=== PATIENT | male | born 1940 | race Caucasian/White ===

== ENCOUNTER 2021-10-08 14:30 | Outpatient (CLI) | payer MEDICARE, OTHER, SELFPAY ==
--- NOTE | ~2021-10-08 | XR_ITS ---
EXAMINATION: XR ankle LT min 3V DATE: 10/08/2021 14:47 INDICATION: Left ankle pain. TECHNIQUE: 4 views of left ankle were obtained. COMPARISON: None. FINDINGS: Bone alignment is normal. No fracture. There is mild osteoarthritis of talonavicular joint. There is mild ankle joint osteoarthritis including osteochondral lesions of medial and lateral talar dome. There is heterotopic ossification distal to medial and lateral malleoli from old injuries. The re are enthesophytes at the posterior and plantar aspects of calcaneal tuberosity. Ankle soft tissue swelling is noted. IMPRESSION: 1. Polyarticular osteoarthritis. Reviewed, dictated and finalized at location A.
== END 2021-10-08 14:31 ==
PROVIDERS: PCP Family Medicine; Visit Provider Physician Assistant
DX: M19.072 Primary osteoarthritis, left ankle and foot (principal)
CPT/HCPCS: 73610

== ENCOUNTER 2021-11-19 08:13 | Outpatient (CLI) | payer MEDICARE, OTHER, SELFPAY ==
--- NOTE | ~2021-11-19 | US_ITS ---
EXAMINATION: US art doppler w press LE BI DATE: 11/19/2021 09:07 INDICATION: Peripheral vascular disease TECHNIQUE: Segmental pressures and plethysmographic and Doppler waveforms of the brachial and lower e xtremity arteries were obtained. COMPARISON: None. FINDINGS: Right and left brachial artery pressures of 175 mm Hg and 172 mm Hg, respectively, are concordant (no rmal difference <= 30 mmHg). The right and left high-thigh pressure unable to be obtained due to inab ility to occlude the vessels in the right lower limb above the level of the ankle. The right ankle-brachial index (ELANA) is 1.18 (normal >= 0.9-1). The right great toe-brachial index (T BI) is 0.84 (normal >= 0.6-0.8). Arterial waveforms are biphasic with brisk systolic upstrokes throug hout the arteries of the right lower limb. The left ELANA is at least 1.09 based upon only the pressure in the left dorsalis pedis artery with the left posterior tibial artery unable to be occluded. The left TBI is 0.89. Arterial waveforms are bip hasic with brisk systolic upstrokes throughout the arteries of the left lower limb. IMPRESSION: 1. Normal ELANA's and TBI's bilaterally. No significant occlusive disease. Reviewed, dictated and finalized at location B.
== END 2021-11-19 08:14 | disposition home or self-care (01) ==
LOC: ANHIMG 08:20
PROVIDERS: PCP Family Medicine; Visit Provider Orthopaedic Surgery
DX: I73.9 Peripheral vascular disease, unspecified (principal)
CPT/HCPCS: 93923

== ENCOUNTER 2021-11-30 13:03 | Outpatient (CLI) | payer MEDICARE, OTHER, SELFPAY ==
--- NOTE | ~2021-11-30 | CT_ITS ---
EXAMINATION: CTA abd aorta runoff DATE: 11/30/2021 13:45 INDICATION: Unspecified atherosclerosis of [place] arteries TECHNIQUE: Computed tomographic angiography (CTA) of the abdomen, pelvis, and both lower extremities was performed with 150 mL Omnipaque-350 intravenous contrast. The dose-length product (DLP) was 1659. 15 mGy-cm. Maximum intensity projection 3D-reconstructions of the arteries were created by the [employer] on a separate workstation. Automated exposure control and iterative reconstruction technique w ere employed. COMPARISON: 09/06/2014 FINDINGS: ABDOMINAL AORTA AND ITS BRANCHES: There is calcified atherosclerosis without aneurysm or dissection. There is mild atherosclerosis at t he origins of the celiac axis, superior mesenteric artery, and inferior mesenteric artery. There are single renal arteries. PELVIC VASCULATURE: Mild atherosclerosis of the common and external iliac arteries. Calcified atherosclerosis with areas severe stenosis in the internal iliac arteries. RIGHT LOWER EXTREMITY VASCULATURE: Venous contamination somewhat limits evaluation. There is calcified atherosclerosis without hemodynam ically significant stenosis of the superficial femoral artery. The popliteal artery and tibial perone al trunk appear normal. There is mild atherosclerosis without hemodynamically significant stenosis in the anterior and posterior tibial arteries and the peroneal artery. There is a three-vessel runoff a t the ankle. LEFT LOWER EXTREMITY VASCULATURE: Venous contamination somewhat limits evaluation. There is calcified atherosclerosis without hemodynam ically significant stenosis of the superficial femoral artery. There is severe stenosis of the distal popliteal artery. The distal anterior tibial artery appears to be occluded. There is calcified ather osclerosis with multiple segments of occlusion in the posterior tibial artery. There is a two-vessel runoff at the ankle. ADDITIONAL FINDINGS: Punctate calcifications in an otherwise normal spleen likely represent healed granulomatous disease. The liver is diffusely low in attenuation when compared with the spleen, consistent with hepatic stea tosis. The pancreas, gallbladder, and adrenal glands are normal. There is a 2 mm nonobstructing stone of the right kidney. The left kidney is unremarkable. There are changes of pelvic lymph node dissect ion. There is no free intraperitoneal gas or evidence of bowel obstruction. 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 IMPRESSION: 1. Atherosclerotic disease as detailed above. Reviewed, dictated and finalized at location A.
[2021-11-30 13:32] LABS: Estimated Glomerular Filt Rate 45
== END 2021-11-30 13:04 | disposition home or self-care (01) ==
PROVIDERS: PCP Family Medicine; Visit Provider Orthopaedic Surgery
DX: I70.202 Unspecified atherosclerosis of native arteries of extremities, left leg (principal)
CPT/HCPCS: 75635; Q9967

== ENCOUNTER 2022-04-02 08:05 | Outpatient (CLI) | payer MEDICARE, OTHER, SELFPAY ==
[2022-04-02 18:39] LABS: Basophils Absolute Auto 0.1 K/mm3 (0.0-0.1); Basophils Percent Auto 0.5 % (0.2-1.2); Eosinophils Absolute Auto 0.1 K/mm3 (0-0.3); Eosinophils Percent Auto 1.2 % (0-4.4); Hematocrit 45.7 % (42.0-52.0); Hemoglobin 14.6 g/dL (14.0-18.0); Immature Granulocyte Absolute 0.07 K/mm3 (0.00-0.031); Immature Granulocyte Percent A 0.7 % (0-0.5); Lymphocytes Absolute Auto 2.92 K/mm3 (0.9-3.2); Lymphocytes Percent Auto 29.6 % (18.3-44.2); Mean Corpuscular HGB Conc 31.9 g/dl (32-36); Mean Corpuscular Hemoglobin 30.2 pg (26-34); Mean Corpuscular Volume 94.4 fl (80-100); Mean Platelet Volume 10.5 fl (7.4-10.4); Monocytes Absolute Auto 1.1 K/mm3 (0.1-0.6); Monocytes Percent Auto 10.6 % (2.6-8.5); Neutrophils Absolute Auto 5.7 K/mm3 (1.3-6.7); Neutrophils Percent Auto 57.4 % (45.5-73.1); Platelet Count Result 243 k/mm3 (150-375); Red Blood Count 4.84 M/mm3 (4.6-6.20); Red Cell Distribution Width 13.1 % (11.5-14.5); White Blood Count 9.9 K/mm3 (4.5-10.0)
[2022-04-02 20:29] LABS: Alanine Aminotransferase 34 U/L (6-50); Alkaline Phosphatase 86 U/L (38-126); Anion Gap 10 mmol/L (8-16); Aspartate Amino Transferase 39 U/L (17-59); Bilirubin,Total 0.4 mg/dL (0.2-1.3); Blood Urea Nitrogen 20 mg/dL (9-20); Calcium 9.6 mg/dL (8.4-10.2); Carbon Dioxide 28 mmol/L (22-30); Chloride 102 mmol/L (98-107); Cholesterol 128 mg/dL (0-200); Estimated Glomerular Filt Rate 58; Glucose 135 mg/dL (65-110); HDL Direct 25 mg/dL; Potassium 4.3 mmol/L (3.4-5.0); Sodium 140 mmol/L (137-145); Triglycerides 178 mg/dL (<150)
[2022-04-02 20:40] LABS: LDL Cholesterol Direct 65 mg/dL
[2022-04-02 20:58] LABS: Prostate Specific Antigen < 0.1 ng/mL (< OR = 4.0)
[2022-04-02 21:23] LABS: Hemoglobin A1C 7.1 % (<5.7)
== END 2022-04-02 08:06 | disposition home or self-care (01) ==
LOC: ANHGOSHLAB 08:08
PROVIDERS: PCP Family Medicine; Visit Provider Physician Assistant
DX: E11.65 Type 2 diabetes mellitus with hyperglycemia (principal); E78.2 Mixed hyperlipidemia; G47.33 Obstructive sleep apnea (adult) (pediatric); I10 Essential (primary) hypertension; Z79.899 Other long term (current) drug therapy; Z99.89 Dependence on other enabling machines and devices; C61 Malignant neoplasm of prostate
CPT/HCPCS: 36415; 80053; 80061; 83036; 84153; 84443; 85025

== ENCOUNTER 2022-07-01 08:37 | Outpatient (CLI) | payer MEDICARE, OTHER, SELFPAY ==
--- NOTE | 2022-07-01 08:46 | EST_ITS ---
Patient Info Name: Alexx Warren Age: 81 years : 1940 Gender: Male Ht: 72 in Wt: 228 lbs BSA: 2.32 m2 Exam Date: 07/01/2022 9:06 AM Exam Location: [facility] Pulmonary Patient Status: Outpatient Admit Date: 07/01/2022 Staff Ordering Physician: Pradip Hamm PA-C Home Hospice Aide: Gretchen Willard RDCS Attending Provider: Pradip Hamm PA-C Referring Physician: Hansel COSBY; Exercise Technologist: Anu Banda RDCS Exercise Physician: Anders Shankar DO Exam Type: CA stress echo Study Info Indications I10 - Essential (primary) hypertension Treadmill exercise stress echocardiogram is performed. Summary 1. 1. Negative Bautista exercise stress test for ischemic ST changes by ECG criteria. 2. 2. Good functional capacity, achieving 7 METs of workload. 3. 3. Baseline hypertension with hypertensive response to exercise. 4. 4. Appropriate HR response to exercise. 5. 5. Appropriate HR recovery at 1 minute post exercise. 6. 6. Negative stress echocardiogram for ischemia by wall motion analysis. 7. 7. Patient informed of the above results. Stress Echo Findings Left Ventricle Appropriate increase in LV endocardial thickening with systole. Appropriate augmentation of contractility with systole. No wall motion abnormality. Left Ventricle Normal LV systolic function, no wall motion abnormality. Aortic Valve Incidentally noted at least moderate aortic stenosis that is not assessed in detail here. Protocol: Bautista Stress ECG Details Stage: REST Duration (min): 1 min : 56 sec Speed (mph): 0.0 Grade (%): 0 HR (bpm): 57 SBP (mmHg): 157 DBP (mmHg): 86 METS: --- Stage: REST Duration (min): 12 min : 16 sec Speed (mph): 0.0 Grade (%): 0 HR (bpm): 59 SBP (mmHg): 157 DBP (mmHg): 86 METS: --- Stage: STAGE 1 Duration (min): 1 min : 0 sec Speed (mph): 1.7 Grade (%): 10 HR (bpm): 85 SBP (mmHg): 157 DBP (mmHg): 86 METS: --- Stage: STAGE 1 Duration (min): 2 min : 0 sec Speed (mph): 1.7 Grade (%): 10 HR (bpm): 91 SBP (mmHg): 157 DBP (mmHg): 86 METS: --- Stage: STAGE 1 Duration (min): 3 min : 0 sec Speed (mph): 1.7 Grade (%): 10 HR (bpm): 94 SBP (mmHg): 189 DBP (mmHg): 89 METS: --- Stage: STAGE 2 Duration (min): 1 min : 0 sec Speed (mph): 2.5 Grade (%): 12 HR (bpm): 99 SBP (mmHg): 189 DBP (mmHg): 89 METS: --- Stage: STAGE 2 Duration (min): 2 min : 0 sec Speed (mph): 2.5 Grade (%): 12 HR (bpm): 107 SBP (mmHg): 189 DBP (mmHg): 89 METS: --- Stage: STAGE 2 Duration (min): 2 min : 45 sec Speed (mph): 0.0 Grade (%): 0 HR (bpm): 115 SBP (mmHg): 189 DBP (mmHg): 89 METS: --- Stage: RECOVERY Duration (min): 0 min : 15 sec Speed (mph): 0.0 Grade (%): 0 HR (bpm): 115 SBP (mmHg): 210 DBP (mmHg): 88 METS: --- Stage: RECOVERY Duration (min): 1 min : 15 sec Speed (mph): 0.0 Grade (%): 0 HR (bpm): 101
== END 2022-07-01 08:38 | disposition home or self-care (01) ==
LOC: ANHCARD 08:39
PROVIDERS: PCP Family Medicine; Visit Provider Physician Assistant
DX: I10 Essential (primary) hypertension (principal); Z79.899 Other long term (current) drug therapy
CPT/HCPCS: 93351

== ENCOUNTER 2023-02-10 08:44 | Outpatient (CLI) | payer MEDICARE, OTHER, SELFPAY ==
[2023-02-10 13:24] LABS: Basophils Percent Auto 0.4 % (0.2-1.2); Eosinophils Absolute Auto 0.1 K/mm3 (0-0.3); Eosinophils Percent Auto 1.5 % (0-4.4); Hematocrit 45.9 % (42.0-52.0); Hemoglobin 14.6 g/dL (14.0-18.0); Immature Granulocyte Absolute 0.07 K/mm3 (0.00-0.031); Immature Granulocyte Percent A 0.8 % (0-0.5); Lymphocytes Absolute Auto 2.59 K/mm3 (0.9-3.2); Lymphocytes Percent Auto 30.4 % (18.3-44.2); Mean Corpuscular HGB Conc 31.8 g/dl (32-36); Mean Corpuscular Hemoglobin 29.8 pg (26-34); Mean Corpuscular Volume 93.7 fl (80-100); Mean Platelet Volume 10.6 fl (7.4-10.4); Monocytes Absolute Auto 0.9 K/mm3 (0.1-0.6); Monocytes Percent Auto 10.1 % (2.6-8.5); Neutrophils Absolute Auto 4.9 K/mm3 (1.3-6.7); Neutrophils Percent Auto 56.8 % (45.5-73.1); Platelet Count Result 197 k/mm3 (150-375); Red Cell Distribution Width 13.7 % (11.5-14.5); White Blood Count 8.5 K/mm3 (4.5-10.0)
[2023-02-10 13:56] LABS: Alanine Aminotransferase 37 U/L (6-50); Albumin Level 4.3 g/dL (3.5-5.1); Alkaline Phosphatase 77 U/L (38-126); Anion Gap 4 mmol/L (8-16); Aspartate Amino Transferase 46 U/L (17-59); Bilirubin,Total 0.6 mg/dL (0.2-1.3); Blood Urea Nitrogen 21 mg/dL (9-20); Calcium 9.5 mg/dL (8.4-10.2); Carbon Dioxide 31 mmol/L (22-30); Chloride 105 mmol/L (98-107); Cholesterol 147 mg/dL (0-200); Estimated Glomerular Filt Rate 58; Glucose 142 mg/dL (65-110); HDL Direct 27 mg/dL; Potassium 4.3 mmol/L (3.4-5.0); Sodium 140 mmol/L (137-145); Triglycerides 258 mg/dL (<150)
[2023-02-10 14:07] LABS: LDL Cholesterol Direct 77 mg/dL
[2023-02-10 14:26] LABS: Prostate Specific Antigen < 0.1 ng/mL (< OR = 4.0)
[2023-02-10 14:45] LABS: Creatinine Urine 117.2 mg/dL
[2023-02-10 14:49] LABS: MALB Creatinine Ratio 65.4 mg/g (0-30); Microalbumin Urine Random 76.7 mg/L (0-16.7)
[2023-02-11 00:36] LABS: Hemoglobin A1C 7.7 % (<5.7)
== END 2023-02-10 08:45 | disposition home or self-care (01) ==
LOC: ANHGOSHLAB 08:47
PROVIDERS: PCP Family Medicine; Visit Provider Family Medicine
DX: E11.65 Type 2 diabetes mellitus with hyperglycemia (principal); I10 Essential (primary) hypertension; E78.2 Mixed hyperlipidemia; C61 Malignant neoplasm of prostate; Z79.899 Other long term (current) drug therapy
CPT/HCPCS: 36415; 80053; 80061; 82043; 82607; 83036; 84153; 85025

== ENCOUNTER 2023-04-04 09:40 | Outpatient (CLI) | payer MEDICARE, OTHER, SELFPAY ==
--- NOTE | 2023-04-04 09:53 | ECHO_ITS ---
Patient Info Name: Alexx Warren Age: 82 years : 1940 Gender: Male Ht: 74 in Wt: 218 lbs BSA: 2.29 m2 HR: 61 bpm BP: 171 / 99 mmHg Technical Quality: Fair Exam Date: 04/04/2023 9:55 AM Exam Location: [facility] Patient Status: Outpatient Admit Date: 04/04/2023 Staff Ordering Physician: Abby Garcia MD Travel Registered Nurse Nicu: Anu Banda RDCS Attending Provider: Abby Garcia MD Referring Physician: Radha HARMON; Exam Type: CA echo doppler color flow Study Info Indications R01.1 - Cardiac murmur, unspecified Complete two-dimensional, color flow and Doppler transthoracic echocardiogram is performed. Summary 1. Complete two-dimensional, color flow and Doppler transthoracic echocardiogram is performed. 2. Left ventricular chamber dimension is normal. 3. Ventricular septum is sigmoid shaped. No LVOT obstruction. 4. Left ventricular systolic function is normal, estimated at 55-60%. 5. There is mild concentric increased left ventricular wall thickness. 6. The left ventricular diastolic function is grade I diastolic dysfunction. 7. E/e' 10 is mildly elevated. 8. Left atrial chamber dimension is mildly enlarged. 9. Right atrial chamber dimension is mildly enlarged. 10. There is severe aortic valve sclerosis. 11. There is moderate aortic valve stenosis based on a peak velocity of 273 cm/s, mean gradient of 18 mmHg, and aortic valve area of 1.1 cm2. The valve appears more to be severe than calculated valve area would indicate. 12. The mitral valve has mildly calcified annulus. 13. There is trace tricuspid valve regurgitation. 14. No pulmonary hypertension, estimated pulmonary arterial systolic pressure is 24 mmHg. Left Ventricle E/e' 10 is mildly elevated. Ventricular septum is sigmoid shaped. No LVOT obstruction. Left ventricular chamber dimension is normal. Left ventricular systolic function is normal, estimated at 55-60%. There is mild concentric increased left ventricular wall thickness. The left ventricular diastolic function is grade I diastolic dysfunction. Right Ventricle Right ventricular chamber dimension is normal. Right ventricular systolic function is normal. Left Atria Left atrial chamber dimension is mildly enlarged. Right Atria Right atrial chamber dimension is mildly enlarged. Aortic Valve There is moderate aortic valve stenosis based on a peak velocity of 273 cm/s, mean gradient of 18 mmHg, and aortic valve area of 1.1 cm2. The valve appears more to be severe than calculated valve area would indicate. The aortic valve is probable trileaflet. There is severe aortic valve sclerosis. There is no aortic valve regurgitation. Pulmonic Valve There is no pulmonic regurgitation. Mitral Valve The mitral valve has mildly calcified annulus. There is no mitral valve stenosis. There is no mitral valve regurgitation. Tricuspid Valve There is trace tricuspid valve regurgitation. No pulmonary hypertension, estimated pulmonary arterial systolic pressure is 24 mmHg. Pericardium/Pleural There is no pericardial effusion. Inferior Vena Cava Normal inferior vena cava with >50% collapse upon inspiration consistent with normal right atrial pressure, 5 mmHg. Aorta The aortic root size at the sinus of Valsalva is normal. Left Ventricular Outflow Tract Name Value Normal LVOT 2D L
== END 2023-04-04 09:41 | disposition home or self-care (01) ==
PROVIDERS: PCP Family Medicine; Visit Provider Family Medicine
DX: I51.7 Cardiomegaly (principal); I35.0 Nonrheumatic aortic (valve) stenosis; I37.8 Other nonrheumatic pulmonary valve disorders; I34.81 Nonrheumatic mitral (valve) annulus calcification; R93.1 Abnormal findings on diagnostic imaging of heart and coronary circulation
CPT/HCPCS: 93306

== ENCOUNTER 2023-07-08 08:30 | Outpatient (CLI) | payer MEDICARE, OTHER, SELFPAY ==
[2023-07-08 12:29] LABS: Alanine Aminotransferase 24 U/L (6-50); Albumin Level 4.1 g/dL (3.5-5.1); Alkaline Phosphatase 94 U/L (38-126); Anion Gap 7 mmol/L (8-16); Aspartate Amino Transferase 64 U/L (17-59); Bilirubin,Total 0.8 mg/dL (0.2-1.3); Blood Urea Nitrogen 27 mg/dL (9-20); Calcium 9.8 mg/dL (8.4-10.2); Carbon Dioxide 31 mmol/L (22-30); Chloride 101 mmol/L (98-107); Cholesterol 129 mg/dL (0-200); Estimated Glomerular Filt Rate 48; Glucose 114 mg/dL (65-110); HDL Direct 28 mg/dL; Potassium 4.4 mmol/L (3.4-5.0); Sodium 139 mmol/L (137-145); Triglycerides 184 mg/dL (<150)
[2023-07-08 12:38] LABS: LDL Cholesterol Direct 71 mg/dL
[2023-07-08 12:54] LABS: Hemoglobin A1C 7.5 % (<5.7)
[2023-07-08 13:17] LABS: Creatinine Urine 69.1 mg/dL
[2023-07-08 13:19] LABS: MALB Creatinine Ratio 68.7 mg/g (0-30); Microalbumin Urine Random 47.5 mg/L (0-16.7)
== END 2023-07-08 08:31 | disposition home or self-care (01) ==
LOC: ANHGOSHLAB 08:32
PROVIDERS: PCP Family Medicine; Visit Provider Family Medicine
DX: E11.65 Type 2 diabetes mellitus with hyperglycemia (principal)
CPT/HCPCS: 36415; 80053; 80061; 82043; 82607; 83036

== ENCOUNTER 2023-08-02 03:02 | Emergency (ER) | payer MEDICARE, OTHER, SELFPAY ==
[2023-08-02] VITALS (11 sets, daily range): BP systolic 148–225; BP diastolic 66–77; PULSE 55–61; RESP 12–20; TEMP 36.9; O2SAT 92–100
--- NOTE | ~2023-08-02 | CT_ITS ---
CT head without contrast Indication: Head trauma Technique: Serial scans were obtained through the brain without the administration of contrast. Dose reduction technique was used on this scan by utilizing automated exposure control and iterative recon struction technique. The dose-length product (DLP) was 681.00 mGy-cm. Findings: There is no evidence of intracranial hemorrhage, mass lesion, or acute infarct. Focal chron ic left frontal lobe infarct noted. The ventricles and subarachnoid spaces are dilated, consistent wi th mild atrophy. Low attenuation regions are seen within the periventricular white matter bilaterall y, likely representing changes from chronic microvascular ischemic disease. There is no evidence of e efe, mass effect or midline shift. The visualized paranasal sinuses and mastoid air cells are larry r. There is soft tissue swelling/hematoma over the right cheek. Impression: No intracranial hemorrhage, mass, or acute infarct. Focal chronic left frontal lobe infarct. Atrophy and chronic white matter changes, as above. Soft tissue swelling/hematoma over the right cheek. Reviewed, dictated and finalized at location . ING OFF WINDER Impression: No intracranial hemorrhage, mass, or acute infarct. Focal chronic left frontal lobe infarct. Atrophy and chronic white matter changes, as above. Soft tissue swelling/hematoma over the right cheek.
--- NOTE | ~2023-08-02 | CT_ITS ---
CT Facial Bones and Cervical Spine Clinical Indication: Trauma Technique: Contiguous axial scans were obtained through the facial bones and cervical spine followed by coronal and sagittal reconstructions. Dose reduction technique was used on this scan by utilizing automated exposure control and iterative reconstruction technique. The dose-length product (DLP) was 564.64 mGy-cm. Findings: CT facial bones: No fractures are identified. The visualized paranasal sinuses are clear. Intraorbita l soft tissues appear normal. There is mild soft tissue swelling over the right cheek and right foreh ead. CT cervical spine: No fractures or subluxation. There is moderate to advanced degenerative disc narr owing at C5-C6 and C6-C7. There is degenerative change at the articulation of the odontoid process wi th the anterior arch of C1. There is bilateral significant neural foraminal narrowing at C4-C5 with b ilateral facet arthropathy. There is bilateral neural foraminal narrowing at C5-C6 with prominent melvi ateral facet arthropathy. There is bilateral neural foraminal narrowing at C6-C7, with facet arthropa thy and disc osteophyte complex. There is probable mild canal stenosis at C6-C7. No prevertebral soft tissue swelling. Impression: No fracture is seen in the facial bones. No fracture or subluxation of the cervical spine. Degenerative spondylosis of the cervical spine, as above. Soft tissue swelling over the right cheek and right forehead. Reviewed, dictated and finalized at [facility]. ER TESTER Impression: No fracture is seen in the facial bones. No fracture or subluxation of the cervical spine. Degenerative spondylosis of the cervical spine, as above. Soft tissue swelling over the right cheek and right forehead.
[2023-08-02] MEDS: MORPHINE SULFATE (*CRX) 4 MG/ML INJ 2 MG IV PUSH (03:56)
[2023-08-02] MEDS: TETANUS,DIPHTHERIA,AC PERTUSSIS ADULT (0.5 ML) BOOSTRIX IM (04:17)
[2023-08-02] MEDS: ceFAZolin 2 GM/D5W 50 ML 2 GM/50 ML BAG IVPB (04:18)
--- NOTE | 2023-08-02 04:18 | ED.GENADULT ---
HPI - General Adult General Chief complaint: Trauma Stated complaint: LAC ABOVE RT EYE S/P FALL Time Seen by Provider: 08/02/23 03:13 History of Present Illness HPI narrative: patient is a 82-year-old gentleman who presents emergency department with chief complaint of fall down steps. Patient reports he was walking up the stairs and lost his balance falling backwards had a laceration to his forehead no loss of consciousness patient reports that his last tetanus status reports no visual changes reports being on no blood thinners. Related Data Home Medications Medication Instructions Recorded Confirmed flaxseed oil 1,000 mg capsule 1,000 mg PO BID 07/06/22 07/12/23 cyclosporine 0.05 % eye drops in a drp EACH EYE 02/15/23 07/12/23 dropperette (Restasis) omega 9-ubp-jfu-fish oil 1,000 mg 1 cap PO BID 05/03/23 07/12/23 (120 mg-180 mg) capsule (Fish Oil) Allergies Allergy/AdvReac Type Severity Reaction Status Date / Time No Known Allergies Allergy Verified 08/02/23 03:10 Review of Systems Review of Systems: A 10 system review of systems was completed on the patient and is negative except for what is stated in the HPI. Nursing and ancillary documentation was reviewed. [facility] Past Medical History Medical History Abnormality of heart beat Acute hydrocele Ankle pain, left Greater trochanteric bursitis of left hip History of anesthesia problem Malignant neoplasm of prostate radical prostatectomy years ago MRSA (methicillin resistant staph aureus) culture positive Peripheral arterial occlusive disease Sleep apnea in adult Traumatic arthritis of left ankle Surgical History Surgical History History of back surgery History of prostate surgery Radical Prostatectomy in 1996 per patient Questionnaire Family History Family History Father Family history of cardiovascular disease Family history of congestive heart failure Sibling Family history of cardiovascular disease Family history of congestive heart failure Social History Social History Smoking status: Never smoker Alcohol intake: current Drinks per week: 7 Substance use: never Substance use type: does not use Lack of Transportation: No Lack of Food: Never True Current Housing: I Have Housing Concerned About Future Housing: No Difficulty Paying Gas/Electric Bills: No Difficulty Paying for Meds: No Currently Unemployed: No Education: Bachelor's Degree Difficulty w/ Childcare or Family Care: No Living arrangements: with family Additional living arrangements comments: lives with Occupation/Education: retired Gender identity (if verbalized by the patient): Male Exam Narrative: GENERAL: Well-appearing, well-nourished, and in no acute distress. HEAD: Normocephalic, Abrasions present to the right side of the face, there is a 6 cm laceration to the forehead on the right side there is a small laceration to the lower eyelid. EYES: PERRLA and EOMI. there is a subconjunctival hemorrhage on the right ENT: Nares clear, no rhinorrhea or epistaxis. Mucous membranes moist. NECK: Supple. CHEST: Clear to auscultation. No respiratory distress. HEART: Regular rate and rhythm. No murmur heard. Normal peripheral pulses. ABDOMEN: Soft, nontender, nondistended, normal active bowel sounds. EXTREMITIES: Normal range of motion. No edema. SKIN: Warm, dry, no rash. there is a skin tear present on the right upper extremity NEURO: No focal deficits. Alert and oriented x3. PSYCH: Normal mood and affect. Course Vital Signs Vital signs: Vital Signs Pulse Rate 61 08/02/23 03:01 Respiratory Rate 15 08/02/23 03:01 Pulse Oximetry 98 08/02/23 03:01 Oxygen Delivery Kenna
--- NOTE | 2023-08-02 04:30 | PC.NURSE ---
Lac tray, 1% lido w epi, sutures, betadine at bedside. EDP Dr. Jaquez made aware.
[2023-08-02] MEDS: LIDO 1%/EPINEPHRINE 1:100,000 20 ML VIAL INFILTRATE (05:08)
[2023-08-02] MEDS: ONDANSETRON INJ 4 MG/2 ML VIAL IV PUSH (05:26)
== END 2023-08-02 06:00 | disposition home or self-care (01) ==
PROVIDERS: Emergency Provider Emergency Medicine; PCP Family Medicine
DX: S01.81XA Laceration without foreign body of other part of head, initial encounter (principal); S02.31XA Fracture of orbital floor, right side, initial encounter for closed fracture; Z85.46 Personal history of malignant neoplasm of prostate; G47.30 Sleep apnea, unspecified; W10.9XXA Fall (on) (from) unspecified stairs and steps, initial encounter; Z23 Encounter for immunization
CPT/HCPCS: 12011; 12052; 70450; 70486; 72125; 90471; 90715; 96365; 96375; 99284; J0690; J2270; J2405

== ENCOUNTER 2023-08-11 12:30 | Emergency (ER) | payer MEDICARE, OTHER, SELFPAY ==
[2023-08-11 12:40] VITALS: BP 141/68; PULSE 75; RESP 16; TEMP 36.3; O2SAT 98
--- NOTE | 2023-08-11 12:52 | ED.GENADULT ---
HPI - General Adult General Chief complaint: Neck Pain/Injury Stated complaint: INJURED NECK Time Seen by Provider: 08/11/23 12:45 Source: patient and RN notes reviewed Mode of arrival: ambulatory Limitations: no limitations History of Present Illness HPI narrative: Patient presents today complaining popping and cracking sensation in his neck. On 08/02/2023 he fell down some stairs at home injuring his face and fracturing in orbit. He was subsequently seen in the ER at [facility] and received a facial bone, head, and neck CT. States he was given results of his face and head CT, but was not told the results of his neck CT and believes he has bones broken or shifting in his neck. Denies neck pain, but is concerned about the sensations in his neck when he moves it. Related Data Home Medications Medication Instructions Recorded Confirmed flaxseed oil 1,000 mg capsule 1,000 mg PO BID 07/06/22 08/11/23 omega 6-iji-buy-fish oil 1,000 mg 1 cap PO BID 05/03/23 08/09/23 (120 mg-180 mg) capsule (Fish Oil) cyclosporine 0.05 % eye drops in a 1 drp EACH EYE DAILY 08/11/23 08/11/23 dropperette (Restasis) Allergies Allergy/AdvReac Type Severity Reaction Status Date / Time No Known Allergies Allergy Verified 08/11/23 12:39 Review of Systems Review of Systems: CONSTITUTIONAL: Denies body aches, fever, chills, or sweats. EYES: Denies visual changes, redness, or discharge. ENT: Denies rhinorrhea, congestion, sore throat, or otalgia. + neck popping and cracking CARDIOVASCULAR: Denies chest pain, palpitations, or edema. RESPIRATORY: Denies cough or dyspnea. GASTROINTESTINAL: Denies abdominal pain, nausea, vomiting, or diarrhea. GENITOURINARY: Denies dysuria or hematuria. SKIN: Denies rash, itching, or wounds. MUSCULOSKELETAL: Denies back pain, joint pain, or myalgia. NEUROLOGIC: Denies headache, numbness, tingling, or weakness. PSYCH: Denies depression or anxiety. [facility] Past Medical History Medical History Abnormality of heart beat Acute hydrocele Ankle pain, left Greater trochanteric bursitis of left hip History of anesthesia problem Malignant neoplasm of prostate radical prostatectomy years ago MRSA (methicillin resistant staph aureus) culture positive Peripheral arterial occlusive disease Sleep apnea in adult Traumatic arthritis of left ankle Surgical History Surgical History History of back surgery History of prostate surgery Radical Prostatectomy in 1996 per patient Questionnaire Family History Family History Father Family history of cardiovascular disease Family history of congestive heart failure Sibling Family history of cardiovascular disease Family history of congestive heart failure Social History Social History Smoking status: Never smoker Alcohol intake: current Drinks per week: 7 Substance use: never Substance use type: does not use Do You Feel Safe in your Home?: Yes Lack of Transportation: No Lack of Food: Never True Current Housing: I Have Housing Concerned About Future Housing: No Difficulty Paying Gas/Electric Bills: No Difficulty Paying for Meds: No Currently Unemployed: No Education: Bachelor's Degree Difficulty w/ Childcare or Family Care: No Living arrangements: with family Additional living arrangements comments: lives with Occupation/Education: retired Gender identity (if verbalized by the patient): Male Comments At time of signature, I have reviewed and agree with nursing past medical, surgical, social and family history unless otherwise noted. Please see nursing chart for further information. There is no relevant family history pertinent to the presenting complaint Exam Narrative:
== END 2023-08-11 12:58 | disposition home or self-care (01) ==
PROVIDERS: Emergency Provider Nurse Practitioner; PCP Family Medicine
DX: M54.2 Cervicalgia (principal); I73.9 Peripheral vascular disease, unspecified; Z85.46 Personal history of malignant neoplasm of prostate; Z90.79 Acquired absence of other genital organ(s); Z86.14 Personal history of Methicillin resistant Staphylococcus aureus infection
CPT/HCPCS: 99212; G0463

== ENCOUNTER 2024-01-13 09:31 | Outpatient (CLI) | payer MEDICARE, OTHER, SELFPAY ==
[2024-01-13 19:15] LABS: Creatinine Urine 70.5 mg/dL
[2024-01-13 19:19] LABS: Microalbumin Urine Random 28.2 mg/L (0-16.7)
[2024-01-13 19:56] LABS: Alanine Aminotransferase 19 U/L (6-50); Albumin Level 4.4 g/dL (3.5-5.1); Alkaline Phosphatase 98 U/L (38-126); Anion Gap 9 mmol/L (4-12); Aspartate Amino Transferase 38 U/L (17-59); Bilirubin,Total 0.8 mg/dL (0.2-1.3); Blood Urea Nitrogen 24 mg/dL (9-20); Calcium 9.9 mg/dL (8.4-10.2); Carbon Dioxide 28 mmol/L (22-30); Chloride 103 mmol/L (98-107); Cholesterol 132 mg/dL (0-200); Estimated Glomerular Filt Rate 52; Glucose 118 mg/dL (65-110); HDL Direct 31 mg/dL; Potassium 4.3 mmol/L (3.4-5.0); Sodium 140 mmol/L (137-145); Triglycerides 234 mg/dL (<150)
[2024-01-13 20:07] LABS: LDL Cholesterol Direct 76 mg/dL
[2024-01-13 20:19] LABS: Hemoglobin A1C 6.8 % (<5.7)
== END 2024-01-13 09:32 | disposition home or self-care (01) ==
LOC: ANHGOSHLAB 09:32
PROVIDERS: PCP Family Medicine; Visit Provider Family Medicine
DX: E11.65 Type 2 diabetes mellitus with hyperglycemia (principal)
CPT/HCPCS: 36415; 80053; 80061; 82043; 82607; 83036

== ENCOUNTER 2024-04-04 12:34 | Outpatient (CLI) | payer MEDICARE, OTHER, SELFPAY ==
--- NOTE | 2024-04-04 12:37 | ECHO_ITS ---
Patient Info Name: Alexx Warren Age: 83 years : 1940 Gender: Male Ht: 73 in Wt: 216 lbs BSA: 2.26 m2 HR: 60 bpm Technical Quality: Good Exam Date: 04/04/2024 1:02 PM Exam Location: Echo Lab Patient Status: Outpatient Admit Date: 04/04/2024 Staff Ordering Physician: Anders Shankar DO Business Development Associate: Thiago Babb RDCS Attending Provider: Anders Shankar DO Referring Physician: Raad GARCIA; Exam Type: CA echo doppler color flow Study Info Indications - nonrhumatic aortic valve stenosis Complete two-dimensional, color flow and Doppler transthoracic echocardiogram is performed. Summary 1. Complete two-dimensional, color flow and Doppler transthoracic echocardiogram is performed. 2. Left ventricular chamber dimension is normal. 3. Left ventricular systolic function is normal, estimated at 60-65%. 4. There is moderate concentric increased left ventricular wall thickness. 5. The left ventricular diastolic function is grade I diastolic dysfunction. 6. Left atrial chamber dimension is mildly enlarged. 7. There is severe aortic valve sclerosis. 8. There is moderate aortic valve stenosis with a peak velocity of 275 cm/s, mean gradient of 20 mmHg, and aortic valve area of 1.2 cm2. 9. The mitral valve has mildly calcified annulus. 10. There is mild mitral valve regurgitation. 11. There is trace tricuspid valve regurgitation. 12. No pulmonary hypertension, estimated pulmonary arterial systolic pressure is 38 mmHg. Left Ventricle Tissue doppler E/e' was not performed. Left ventricular chamber dimension is normal. Left ventricular systolic function is normal, estimated at 60-65%. There is moderate concentric increased left ventricular wall thickness. The left ventricular diastolic function is grade I diastolic dysfunction. Right Ventricle Right ventricular systolic function is normal and with normal TAPSE 2.3 cm. Right ventricular chamber dimension is normal. Left Atria Left atrial chamber dimension is mildly enlarged. Right Atria Right atrial chamber dimension is normal. Aortic Valve The aortic valve is trileaflet. There is severe aortic valve sclerosis. There is moderate aortic valve stenosis with a peak velocity of 275 cm/s, mean gradient of 20 mmHg, and aortic valve area of 1.2 cm2. There is no aortic valve regurgitation. Pulmonic Valve There is no pulmonic regurgitation. Mitral Valve The mitral valve has mildly calcified annulus. There is no mitral valve stenosis. There is mild mitral valve regurgitation. Tricuspid Valve There is trace tricuspid valve regurgitation. No pulmonary hypertension, estimated pulmonary arterial systolic pressure is 38 mmHg. Pericardium/Pleural There is no pericardial effusion. Inferior Vena Cava Normal inferior vena cava with >50% collapse upon inspiration consistent with normal right atrial pressure, 5 mmHg. Aorta The aortic root size at the sinus of Valsalva is normal. Left Ventricular Outflow Tract Name Value Normal LVOT 2D LVOT Diameter 2.1 cm LVOT Doppler LVOT Peak Gradient 2 mmHg LVOT Mean Gradient 1 mmHg LVOT VTI 19 cm LVOT VTI/AV VTI Ratio 0.3
== END 2024-04-04 12:35 | disposition home or self-care (01) ==
LOC: ANHCARD 12:36
PROVIDERS: PCP Family Medicine; Visit Provider Internal Medicine Cardiovascular Disease
DX: I35.0 Nonrheumatic aortic (valve) stenosis (principal); I34.0 Nonrheumatic mitral (valve) insufficiency
CPT/HCPCS: 93306

== ENCOUNTER 2024-05-18 08:40 | Outpatient (CLI) | payer MEDICARE, OTHER, SELFPAY ==
[2024-05-18 17:11] LABS: Hemoglobin A1C 8.1 % (<5.7)
[2024-05-18 17:15] LABS: Alanine Aminotransferase 28 U/L (6-50); Albumin Level 4.3 g/dL (3.5-5.1); Alkaline Phosphatase 89 U/L (38-126); Anion Gap 9 mmol/L (4-12); Aspartate Amino Transferase 51 U/L (17-59); Bilirubin,Total 0.8 mg/dL (0.2-1.3); Blood Urea Nitrogen 29 mg/dL (9-20); Calcium 9.9 mg/dL (8.4-10.2); Carbon Dioxide 32 mmol/L (22-30); Chloride 99 mmol/L (98-107); Cholesterol 144 mg/dL (0-200); Estimated Glomerular Filt Rate 52; Glucose 142 mg/dL (65-110); HDL Direct 28 mg/dL; Potassium 4.6 mmol/L (3.4-5.0); Sodium 140 mmol/L (137-145); Triglycerides 241 mg/dL (<150)
[2024-05-18 17:25] LABS: LDL Cholesterol Direct 74 mg/dL
[2024-05-18 17:26] LABS: Creatinine Urine 75.6 mg/dL
[2024-05-18 17:33] LABS: MALB Creatinine Ratio 26.2 mg/g (0-30); Microalbumin Urine Random 19.8 mg/L (0-16.7)
[2024-05-18 18:11] LABS: Prostate Specific Antigen < 0.1 ng/mL (< OR = 4.0)
== END 2024-05-18 08:41 | disposition home or self-care (01) ==
LOC: ANHGOSHLAB 08:42
PROVIDERS: PCP Family Medicine; Visit Provider Family Medicine
DX: E11.65 Type 2 diabetes mellitus with hyperglycemia (principal); Z12.5 Encounter for screening for malignant neoplasm of prostate
CPT/HCPCS: 36415; 80053; 80061; 82043; 83036; 84153; G0103

== ENCOUNTER 2024-11-19 08:04 | Outpatient (CLI) | payer MEDICARE, OTHER, SELFPAY ==
--- OUTSIDE RECORDS SUMMARY | 2024-11-19 08:10 | XMS_ITS | Clinical Summary ---
Author Organization [facility] Main [place] Address [address] [place] [address] Care Team Providers Care Brine Tank Tender Name Role Phone German Herron MD Primary Care Provider [phone] Allergies No known active allergies Medications acyclovir (ZOVIRAX) 400 mg tablet Take 400 mg by mouth every 4 (four) hours while awake Active aspirin 81 mg enteric coated tablet Take 81 mg by mouth daily Active hydroCHLOROthia zide (HYDRODIURIL) 12.5 mg tablet Take 12.5 mg by mouth daily Active lisinopriL (PRINIVIL,ZESTR IL) 20 mg tablet Take 20 mg by mouth daily Active metFORMIN (GLUCOPHAGE) 500 mg tablet Take 500 mg by mouth 2 (two) times a day with meals Active naproxen (NAPROSYN) 500 mg tablet Take 500 mg by mouth 2 (two) times a day with meals Active omeprazole (PriLOSEC) 20 mg capsule Take 20 mg by mouth daily Active simvastatin (ZOCOR) 20 mg tablet Take 20 mg by mouth nightly Active multivitamin capsule Take 1 capsule by mouth daily Active Active Problems Problem Noted Date Diagnosed Date Primary hypertension 12/17/2021 Assessment & Plan (12/17/2021 4:08 PM CDT): Lisinopril Type 2 diabetes mellitus, wi thout long-term current use of insulin 12/17/2021 Assessment & Plan (12/17/2021 4:09 PM CDT): Metformin PAD (peripheral artery disease) 12/09/2017 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 At this point he does not have life-limiting claudication, rest pain or wounds. I discussed the importance of maximal medical therapy with ASA and statin therapy. I will review his CT a after its uploaded in our system and give him a call. 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 Gender Identity Not on file Sexual Orientation Not on file Obstetrics History Last Filed Vital Signs Vital Sign Reading Time Taken Comments Blood Pressure 136/80 12/16/2021 10:40 AM CDT Pulse 60 12/12/2017 3:09 PM CDT Temperature - - Respiratory Rate - - Oxygen Saturation 99% 12/12/2017 3:09 PM CDT Inhaled Oxygen Concentration - - Weight 104.3 kg (230 lb) 12/16/2021 10:40 AM CDT Height 182.9 cm (6') 12/16/2021 10:40 AM CDT Body Mass Index 31.19 12/16/2021 10:40 AM CDT Plan of Treatment Health Maintenance Due Date Last Done Comments Albumin Creatinine Ratio, Urine 1940 Depression Screening 1940 Fall Risk Assessment 1940 Hemoglobin A1C 1940 eGFR 1940 Dilated Eye Exam 1940 Foot Exam 1940 Lipid Panel 1940 DTaP/Tdap/Td Vaccine (1 - Tdap) 1949 Hepatitis B Screening 1956 Pneumococcal vaccine 65+ (1 of 2 - PCV) 1957 Zoster Vaccine (1 of 2) 1988 Well Visit 65+ 2003 Covid-19 Vaccine (5 - 2024-2 5 season) 2024 11/14/2021, 04/21/2021, 10/09/2020, Additional history exists Influenza Vaccine (#1) 2024 , 04/21/2020, 04/27/2019, Additional history exists Insurance MEDICARE MEDICARE [employer] MEDICARE FOR LIFE Care Teams Brine Tank Tender Relationship Specialty Start Date End Date German Herron MD [address] [place] [address] PCP - General 11/28/17
--- OUTSIDE RECORDS SUMMARY | 2024-11-19 08:10 | XMS_ITS | Clinical Summary ---
Author Organization [facility] Address [address] [place] [address] Care Team Providers Care Forestry Professor Name Role Phone German Herron MD Primary Care Provider [phone] Source Comments [facility],non-owned Affiliates and Associated Physician Practices is amultiple site organization consisting of ambulatory clinics and hospital sitesin [place], [place], [place] and [place]. This disclosure is being madepursuant to the Care Everywhere program and may not contain all information available regarding this patient. Last updated 18.[facility] [employer]. Allergies No known active allergies Medications * Be aware that medications may not be up to date on this document. Alwaysverify current medications with the patient. erythromycin (Romycin) 5 MG/GM ophthalmic ointment Apply to lacerations to right eye wounds 4 times per day for one week, followed by 2 times per day for one week. 3.5 g 1 4 Active Active Problems No known active problems Social History Tobacco Use Types Packs/Day Years Used Date Smoking Tobacco: Never Assessed Sex and Gender Information Value Date Recorded Sex Assigned at Not on file Legal Sex Male 4:12 AM CDT Gender Identity Not on file Sexual Orientation Not on file Plan of Treatment Health Maintenance Due Date Last Done Comments MEDICARE AWV 12 MONTHS 1940 DTAP/TDAP/TD VACCINES (1 - Tdap) 1957 PNEUMOCOCCAL VACCINE 50+ (1 of 1 - PCV) 1988 ZOSTER VACCINE (1 of 2) 1988 Respiratory Syncytial Virus (RSV) Vaccine Pt: or over 60 yrs (1 - 1-dose 75+ series) 2013 COVID-19 VACCINE ( - 2023-2 5 season) 2024 DEPRESSION SCREENING 07/25/2024 INFLUENZA VACCINE (Season Ended) 2025 HEPATITIS B VACCINE Aged Out No longe r eligible based on patient's age to complete this topic HIB VACCINE Aged Out No longer eligi ble based on patient's age to complete this topic HPV VACCINE Aged Out No longer eligi ble based on patient's age to complete this topic MENINGOCOCCAL (Group B) VACC INE SHARED DECISION-MAKING Aged Out No longer eligibl e based on patient's age to complete this topic MENINGOCOCCAL GROUPS A/C/Y/W VACCINE Aged Out No longer eligible b ased on patient's age to complete this topic [place] [address] [facility] Address: [address] [place] [address] MEDICARE Care Teams Forestry Professor Relationship Specialty Start Date End Date German Herron MD [address] [place] [phone] PCP - General 11/14/18
--- OUTSIDE RECORDS SUMMARY | 2024-11-19 08:10 | XMS_ITS | Referral Summary ---
Author Organization 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 At this point he does not have life-limiting claudication, rest pain or wounds. I discussed the importance of maximal medical therapy with ASA and statin therapy. I will review his CT a after its uploaded in our system and give him a call. 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
--- OUTSIDE RECORDS SUMMARY | 2024-11-19 08:10 | XMS_ITS | Encounter Summary ---
Author Organization [facility] Address [address] [place] [address] Care Team Providers Care Grain Unloader Name Role Phone German Herron MD Primary Care Provider [phone] Encounter Details Date Type Department Care Team (Late st Contact Info) Description 08/04/2023 Telephone [facility] - Centralized Scheduling [address] [place] [phone] Nathan Deal, DO [address] [facility] [phone] Social History Tobacco Use Types Packs/Day Years Used Date Smoking Tobacco: Never Assessed Sex and Gender Information Value Date Recorded Sex Assigned at Not on file Legal Sex Male 4:12 AM CDT Gender Identity Not on file Sexual Orientation Not on file documented as of this encounter Miscellaneous Notes * Telephone Encounter - Leola Garnett - 08/04/2023 10:00 AM CST Pt is on the way but, stuck in traffic. He will be here TOYA. Please call his 's phone if you need to get in touch with him. [phone] DRY OPERATOR FINISHING documented in this encounter Plan of Treatment Not on file documented as of this encounter Visit Diagnoses Not on filedocumented in this encounter Care Teams Grain Unloader Relationship Specialty Start Date End Date German Herron MD [address] [place] [address] PCP - General 11/14/18 documented as of this encounter
[2024-11-19 11:43] LABS: Alanine Aminotransferase 39 U/L (6-50); Albumin Level 4.1 g/dL (3.5-5.1); Alkaline Phosphatase 108 U/L (38-126); Anion Gap 9 mmol/L (4-12); Aspartate Amino Transferase 63 U/L (17-59); Bilirubin,Total 0.7 mg/dL (0.2-1.3); Blood Urea Nitrogen 25 mg/dL (9-20); Calcium 9.2 mg/dL (8.4-10.2); Carbon Dioxide 28 mmol/L (22-30); Chloride 102 mmol/L (98-107); Cholesterol 146 mg/dL (0-200); Estimated Glomerular Filt Rate 49; Glucose 176 mg/dL (65-110); HDL Direct 27 mg/dL; Potassium 4.2 mmol/L (3.4-5.0); Sodium 139 mmol/L (137-145); Triglycerides 230 mg/dL (<150)
[2024-11-19 11:53] LABS: LDL Cholesterol Direct 72 mg/dL
[2024-11-19 12:06] LABS: Creatinine Urine 55.6 mg/dL
[2024-11-19 12:08] LABS: MALB Creatinine Ratio 43.2 mg/g (0-30)
[2024-11-19 12:13] LABS: Hemoglobin A1C 9.7 % (<5.7)
== END 2024-11-19 08:05 | disposition home or self-care (01) ==
LOC: ANHGOSHLAB 08:05
PROVIDERS: PCP Family Medicine; Visit Provider Student in an Organized Health Care Education/Training Program
DX: E11.40 Type 2 diabetes mellitus with diabetic neuropathy, unspecified (principal); I10 Essential (primary) hypertension; E78.2 Mixed hyperlipidemia; K76.0 Fatty (change of) liver, not elsewhere classified
CPT/HCPCS: 36415; 80053; 80061; 82043; 83036

== ENCOUNTER 2025-03-14 08:13 | Outpatient (CLI) | payer MEDICARE, OTHER, SELFPAY ==
--- OUTSIDE RECORDS SUMMARY | 2025-03-14 08:25 | XMS_ITS | Clinical Summary ---
Author Organization [facility] Address [address] [place] [address] Care Team Providers Care Automotive Vehicle Inspector Name Role Phone German Herron MD Primary Care Provider [phone] Source Comments [facility],non-owned Affiliates and Associated Physician Practices is amultiple site organization consisting of ambulatory clinics and hospital sitesin [place], [place], [place] and [place]. This disclosure is being madepursuant to the Care Everywhere program and may not contain all information available regarding this patient. Last updated 18.[facility] [employer] Allergies No known active allergies Medications * [...] season) 2024 DEPRESSION SCREENING 07/25/2024 INFLUENZA VACCINE (#1) 2025 HEPATITIS B VACCINE Aged Out No [...] age to complete this topic Insurance MEDICARE [facility] Address: [address] [place] [address] MEDICARE Care Teams Automotive Vehicle Inspector Relationship Specialty Start Date End Date German Herron MD [address] [place] [id number] PCP - General 11/14/18
--- OUTSIDE RECORDS SUMMARY | 2025-03-14 08:25 | XMS_ITS | Clinical Summary ---
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 Address: [facility] [address] [place] [address] FOR LIFE Care Teams Fast Food Sales Assistant Relationship Specialty Start Date End Date German Herron MD [address] [place] [address] PCP - General 11/28/17
--- OUTSIDE RECORDS SUMMARY | 2025-03-14 08:25 | XMS_ITS | Encounter Summary ---
Author Organization [facility] Address [address] [place] [address] Care Team Providers Care Instructional Technologist Name Role Phone German Herron MD Primary Care Provider [phone] Encounter Details Date Type Department Care Team (Late st Contact Info) Description 08/04/2023 Telephone [facility] - Centralized Scheduling [address] [place] [phone] Nathan Deal, DO [address] [facility] [place] [phone] Social History Tobacco Use Types Packs/Day Years [...] need to get in touch with him. [phone] RIAL CONTROL SUPERVISOR documented in this encounter Plan of Treatment Not on file documented as of this encounter Visit Diagnoses Not on filedocumented in this encounter Care Teams Instructional Technologist Relationship Specialty Start Date End Date German Herron MD [address] [place] [address] PCP - General 11/14/18 documented as of this encounter
[2025-03-14 13:12] LABS: Alanine Aminotransferase 36 U/L (6-50); Albumin Level 4.3 g/dL (3.5-5.1); Alkaline Phosphatase 89 U/L (38-126); Anion Gap 7 mmol/L (4-12); Aspartate Amino Transferase 69 U/L (17-59); Bilirubin,Total 0.5 mg/dL (0.2-1.3); Blood Urea Nitrogen 23 mg/dL (9-20); Calcium 9.7 mg/dL (8.4-10.2); Carbon Dioxide 30 mmol/L (22-30); Chloride 99 mmol/L (98-107); Cholesterol 151 mg/dL (0-200); Estimated Glomerular Filt Rate 44; Glucose 124 mg/dL (65-110); HDL Direct 27 mg/dL; Potassium 4.8 mmol/L (3.4-5.0); Sodium 136 mmol/L (137-145); Total Protein 7.1 g/dL (6.3-8.2); Triglycerides 266 mg/dL (<150)
[2025-03-14 13:22] LABS: MALB Creatinine Ratio 61.4 mg/g (0-30)
[2025-03-14 13:41] LABS: Hemoglobin A1C 7.5 % (<5.7)
[2025-03-14 14:08] LABS: Vitamin B12 376.0 pg/mL (239-931)
== END 2025-03-14 08:14 | disposition home or self-care (01) ==
LOC: ANHGOSHLAB 08:14
PROVIDERS: PCP Family Medicine; Visit Provider Family Medicine
DX: E78.2 Mixed hyperlipidemia (principal); E11.9 Type 2 diabetes mellitus without complications
CPT/HCPCS: 36415; 80053; 80061; 82043; 82607; 83036

== ENCOUNTER 2025-06-05 12:25 | Outpatient (CLI) | payer MEDICARE, OTHER, SELFPAY ==
--- NOTE | 2025-06-05 12:35 | ECHO_ITS ---
Patient Info Name: Alexx Warren Age: 84 years : 1940 Gender: Male Ht: 73 in Wt: 216 lbs BSA: 2.26 m2 HR: 59 bpm BP: 176 / 94 mmHg Heart Rhythm: Sinus Rhythm Technical Quality: Fair Exam Date: 06/05/2025 12:36 PM Patient Status: O Admit Date: 06/05/2025 Exam Type: CA echo doppler color flow Complete two-dimensional, color flow and Doppler transthoracic echocardiogram is performed. Bush And Vine Farmer Fruit Crops: Kelsi Briceno Attending Provider: Anders Shankar DO Summary 1. Complete two-dimensional, color flow and Doppler transthoracic echocardiogram is performed. 2. Left ventricular chamber dimension is normal. 3. Left ventricular systolic function is normal, estimated at 60-65. 4. The left ventricular diastolic function is grade I diastolic dysfunction. 5. E/e' 17 is elevated. 6. Left atrial chamber dimension is moderately enlarged. 7. There is moderate aortic valve sclerosis. 8. There is moderate aortic valve stenosis with a peak velocity of 295 cm/s, mean gradient of 17 mmHg, and aortic valve area of 1.3 cm2. 9. There is trace mitral valve regurgitation. 10. No pulmonary hypertension, estimated pulmonary arterial systolic pressure is 29 mmHg. Left Ventricle E/e' 17 is elevated. Left ventricular chamber dimension is normal. Left ventricular systolic function is normal, estimated at 60-65. The left ventricular diastolic function is grade I diastolic dysfunction. Right Ventricle Right ventricular chamber dimension is normal. Right ventricular systolic function is normal and with normal TAPSE 2.4 cm. Left Atria Left atrial chamber dimension is moderately enlarged. Right Atria Right atrial chamber dimension is normal. Aortic Valve The aortic valve is trileaflet. There is moderate aortic valve sclerosis. There is moderate aortic valve stenosis with a peak velocity of 295 cm/s, mean gradient of 17 mmHg, and aortic valve area of 1.3 cm2. There is no aortic valve regurgitation. Pulmonic Valve There is no pulmonic regurgitation. Mitral Valve There is no mitral valve stenosis. There is trace mitral valve regurgitation. Tricuspid Valve There is no tricuspid valve regurgitation. No pulmonary hypertension, estimated pulmonary arterial systolic pressure is 29 mmHg. Pericardium/Pleural There is no pericardial effusion. Inferior Vena Cava Normal inferior vena cava with >50% collapse upon inspiration consistent with normal right atrial pressure, 5 mmHg. Aorta The aortic root size at the sinus of Valsalva is normal. Left Ventricular Outflow Tract Name Value Normal LVOT 2D LVOT Diameter 2.1 cm LVOT Doppler LVOT Peak Velocity 91 cm/s LVOT Peak Gradient 3 mmHg LVOT Mean Gradient 2 mmHg LVOT VTI 21 cm LVOT VTI/AV VTI Ratio 0.4 LVOT Stroke Volume 73 ml LVOT CO 3.9 l/min LVOT CI 1.7 l/min/m2 Pulmonic Valve Name Value Normal RVOT Doppler RVOT Peak Velocity 68 cm/s RVOT Peak Gradient 2 mmHg PV Doppler PV Peak Velocity 97 cm/s PV Peak Gradient 4 mmHg Mitral Valve Name Value Normal MV Diastolic Function MV E Peak Velocity 78 cm/s MV A Peak Velocity 104 cm/s MV E/A 0.7 MV Decel Time (PW) 339 ms MV Annular TDI MV E/e' (Septal) 20.9 MV E/e' (Lateral) 14.6 MV E/e' (Average) 17.8 Tricuspid Valve Name Value Normal TV Regurgitation Doppler TR Peak Velocity 243 cm/s TR Peak Gradient 24 mmHg Estimated PAP/RSVP RA Pressure 5 mmHg <=5 PA Systolic Pressure 29 mmHg <36 RV Systolic Pressure 29 mmHg <36 TV Annular TDI TV Lateral Maribel s' Velocity 16.1 cm/s >=9.5 Aorta Name Value Normal Ascending Aorta Ao Root Diameter (MM) 3.7 cm Ao Root Diam Index (MM) 1.6 cm/m2 Aortic Valve Name Value Normal AV Doppler AV Peak Velocity 295 cm/s AV Peak Gradient 35 mmHg AV Mean Gradient 17 mmHg AV VTI 54 cm AV Area (Cont Eq VTI) 1.3 cm2 >=3.0 AV Area (Cont Eq Phil) 1.1 cm2 AV DI (Phil) 0.31 AV Regurgitation 2D LVOT Area 3.4 cm2 Ventricles Name Value Normal LV Dimensions 2D/MM IVS Diastolic Thickness (2D) 0.9 cm 0.6-1.0 LVID Diastole (2D) 5.1 cm 4.2-5.8 LVIW Diastolic Thickness (2D) 0.8 cm 0.6-1.0 LVID Systole (2D) 3.4 cm 2.5-4.0 LVOT Diameter 2.1 cm LV Mass (2D Cubed) 158.35 g 88.00-224.00 LV Mass Index (2D Cubed) 70 g/m2 49-115 Relative Wall Thickness (2D) 0.33 <=0.42 LV Fractional Shortening/Ejection Fraction 2D/MM LV Fractional Shortening (2D) 34 % 25-43 LV EF (2D Teichholz) 63 % LV Diastolic Volume (4C MOD) 105 ml LV EF (4C MOD) 60 % LV Diastolic Volume (2C MOD) 105 ml LV EF (2C MOD) 72 % LV Diastolic Volume (BP MOD) 105 ml 62-150 LV Diastolic Volume Index (BP MOD) 46 ml/m2 34-74 LV Systolic Volume (BP MOD) 35 ml 21-61 LV Systolic Volume Index (BP MOD) 15 ml/m2 11-31 LV EF (BP MOD) 67 % 52-72 LV Diastolic Length (4C) 8.7 cm LV Systolic Length (4C) 7.3 cm LV Stroke Volume (4C MOD) 64 ml Atria Name Value Normal LA Dimensions LA Dimension (MM) 5.5 cm 3.0-4.0 LA Volume (4C A-L) 105 ml LA Volume (BP A-L) 94 ml RA Dimensions RA Area (4C) 12.1 cm2 <=18.0 Report Signatures
--- OUTSIDE RECORDS SUMMARY | 2025-06-05 13:31 | XMS_ITS | Clinical Summary ---
Author Organization [facility] Address [address] [place] [address] Care Team Providers Care Sales Consultant Name Role Phone German Herron MD Primary Care Provider [phone] Source Comments [facility],non-owned Affiliates and Associated Physician Practices is amultiple site organization consisting of ambulatory clinics and hospital sitesin [place], [place], [place] and [place]. This disclosure is being madepursuant to the Care Everywhere program and may not contain all information available regarding this patient. Last updated 18.[facility] [employer] Allergies No known active allergies Medications * [...] yrs (1 - 1-dose 75+ series) 2013 DEPRESSION SCREENING 07/25/2024 COVID-19 VACCINE (1 - 2023-2 5 season) 2025 INFLUENZA VACCINE (#1) 2025 HEPATITIS B VACCINE [...] age to complete this topic Insurance MEDICARE [facility] MEDICARE Care Teams Sales Consultant Relationship Specialty Start Date End Date German Herron MD [address] [place] [address] PCP - General 11/14/18
--- OUTSIDE RECORDS SUMMARY | 2025-06-05 13:31 | XMS_ITS | Encounter Summary ---
Author Organization [facility] Address [address] [place] [address] Care Team Providers Care Adjustment Supervisor Name Role Phone German Herron MD Primary Care Provider [phone] Encounter Details Date Type Department Care Team (Late st Contact Info) Description 08/04/2023 Telephone [facility] - Centralized Scheduling [address] [place] [phone] Nathan Deal, DO [address] [facility] [place] [phone] Social History Tobacco Use Types Packs/Day Years [...] need to get in touch with him. [phone] RGRADUATE INTERN documented in this encounter Plan of Treatment Not on file documented as of this encounter Visit Diagnoses Not on filedocumented in this encounter Care Teams Adjustment Supervisor Relationship Specialty Start Date End Date German Herron MD [address] [place] [address] PCP - General 11/14/18 documented as of this encounter
--- OUTSIDE RECORDS SUMMARY | 2025-06-05 13:31 | XMS_ITS | Clinical Summary ---
Author Organization [facility] [address] [place] Address [address] [place] [address] Care Team Providers Care [place]lemish Remover Name Role Phone German Herron MD Primary Care Provider [phone] Allergies No known active allergies Medications acyclovir [...] PAD (peripheral artery disease) 12/09/2017 Atherosclerosis of [place] of both lower extremities with intermittent claudication 12/09/2017 Assessment & Plan (12/17/2021 4:08 PM CDT): Assessment/plan: Her [facility] CTA report and clinically, peripheral vascular [...] Comments PAD (peripheral artery disease) Hypertension Diabetes Hyperlipemia Social History Tobacco Use Types Packs/Day Years Used Date Smoking Tobacco: Never Personal Safety Answer Date Recorded Getting School Help Needed Not on file 09/18 Sex and Gender Information Value Date Recorded Sex Assigned at Not on file Legal Sex Male 9:42 PM [employer] Gender Identity Not on file Sexual Orientation [...] FOR LIFE MEDICARE FOR LIFE Care Teams [place] Remover Relationship Specialty Start Date End Date German Herron MD [address] [place] [address] PCP - General 11/28/17
== END 2025-06-05 12:26 | disposition home or self-care (01) ==
PROVIDERS: PCP Family Medicine; Visit Provider Internal Medicine Cardiovascular Disease
DX: R93.1 Abnormal findings on diagnostic imaging of heart and coronary circulation (principal); I35.0 Nonrheumatic aortic (valve) stenosis
CPT/HCPCS: 93306